=== PATIENT | female | born 1985 | race Caucasian/White ===

== ENCOUNTER 2016-09-17 20:51 | Emergency (ER) | payer MEDICAID, OTHER ==
[~2016-09-17] VITALS: Ht 157.5 cm; Wt 119.0 kg
[~2016-09-17 20:51] MED LIST: ACET500T98 PO; HYDR-902 PO; IBUP-1542 PO; IBUP400T22 PO; MECL-77 PO; MECL25TA2 PO; NAPR-260 PO; ONDA4TAB14 PO; OSLT75C PO; UDROBDM PO
[2016-09-17 20:54] VITALS: Ht 157.5 cm; Wt 119.0 kg
--- NOTE | 2016-09-17 22:25 | ERD ---
ER Documentation Chief Complaint Date/Time DATE: 09/17/16 TIME: 22:23 Chief Complaint twisted left ankle while running yesterday HPI 31-year-old female comes in with left lateral medial ankle pain after twisting it yesterday. She states that she has not gotten her foot in a pothole causing an inversion injury, she has diffuse swelling, achy pain worse with weightbearing better at rest. She states the pain improved after taking ibuprofen which she took 2 hours prior to arrival. She denies any radiation of pain to her foot or her leg. She denies any weakness. ROS All systems reviewed and are negative except as per history of present illness. Medications Home Meds Active Scripts Ibuprofen* (Motrin*) 600 Mg Tab, 600 MG PO Q6, #30 TAB Prov:KIERA LUCAS PA-C 09/17/16 Ondansetron (Ondansetron Odt) 4 Mg Tab.rapdis, 4 MG PO Q6H Y for NAUSEA AND/OR VOMITING, #20 TAB Prov:CHAD ARSHAD PA-C 11/28/15 Hydrocodone/Acetaminophen (Slemp 10-325 Tablet) 1 Each Tablet, 1 TAB PO Q6H Y for PAIN, #20 TAB Prov:CHAD ARSHAD PA-C 11/28/15 Ibuprofen* (Motrin*) 600 Mg Tab, 600 MG PO Q6H Y for PAIN AND OR ELEVATED TEMP, #30 TAB Prov:CHAD ARSHAD PA-C 11/28/15 Meclizine Hcl* (Meclizine Hcl*) 25 Mg Tablet, 25 MG PO Q8H Y for DIZZINESS, #14 TAB Prov:JCARLOS BURROWS DO 11/09/15 Naproxen* (Naprosyn*) 500 Mg Tablet, 500 MG PO BID Y for PAIN AND/OR INFLAMMATION, #15 TAB Prov:JCARLOS BURROWS DO 11/09/15 Guaifenesin-Dextromethorphan* (Robitussin* DM) 100MG/10MG/5ML Syrup, 5 ML PO Q6H Y for COUGH, #120 ML 0 Refills Prov:EYAL SCHMID PA-C 05/14/15 Ibuprofen* (Motrin*) 400 Mg Tab, 400 MG PO Q6, #30 TAB 0 Refills Prov:EYAL SCHMID PA-C 05/14/15 Oseltamivir Phosphate* (Tamiflu*) 75 Mg Capsule, 75 MG PO BID, #10 CAP 0 Refills Prov:EYAL SCHMID PA-C 05/14/15 Acetaminophen (Tylenol) 500 Mg Tab, 500 MG PO Q6, #30 TAB 0 Refills Prov:EYAL SCHMID CORAZON 05/14/15 Meclizine Hcl* (Antivert*) 25 Mg Tablet, 25 MG PO Q6H Y for vertigo, #20 TAB Prov:STARR KRUGER 09/02/14 Allergies Allergies: Coded Allergies: No Known Allergy (Verified , 09/17/16) PMhx/Soc Medical and Surgical Hx: pt denies Surgical Hx History of Surgery: No Anesthesia Reaction: No Hx Neurological Disorder: No Hx Respiratory Disorders: No Hx Cardiac Disorders: No Hx Psychiatric Problems: No Hx Miscellaneous Medical Probl: Yes (OBESE ) Hx Alcohol Use: No Hx Substance Use: No Hx Tobacco Use: No Smoking Status: Never smoker Physical Exam Vitals Vital Signs Date Time Temp Pulse Resp B/P Pulse Ox O2 Delivery O2 Flow Rate FiO2 09/17/16 20:54 96.9 102 20 166/99 97 Physical Exam General: Well-developed, well-nourished. The patient appears in no acute distress. HEENT: Head is normocephalic, atraumatic. No scleral icterus. Neck: Supple. Nontender. Lungs: Clear to auscultation. Normal air movement. Heart: Regular rate and rhythm. S1 and S2 are normal. No murmurs, gallops, or rubs. Abdomen: Nondistended. Extremities: diffuse soft tissues swelling across the medial ankle as well as lateral ankle, there are no bony deformities. There is ecchymosis over the medial ankle. Pulses 2+ bilaterally. Achilles intact. Neurologic: Alert and oriented 3. No focal deficits. Normal speech and gait. Skin: Normal turgor. No rash or lesions. Results 24 hrs DIAGNOSTIC IMAGING REPORT Patient: DAVID PAIGE : 1985 Age: 31 Sex: F MR #: [id number] DOS: 09/17/16 2152 Ordering MD: KIERA LUCAS PA-C Location: [facility] Room/Bed: PROCEDURE: XR Left Ankle CLINICAL INDICATION: Injury TECHNIQUE: Standard 3 view radiographs were submitted. COMPARISON: None FINDINGS: Osseous structures: Well mineralized and intact with no fracture or destructive process identified. Joint spaces: Well maintained with no significant erosions or spurring evident. Soft tissues: The soft tissues are diffusely prominent. IMPRESSION: 1. Diffusely prominent soft tissues. 2. No fracture or dislocation is identified. Physician Po Date Time Electronically viewed and signed by Lalo Florentino Physician on 09/17/2016 22:23 RH/ CC: KIERA LUCAS PA-C Procedures/MDM ED course: I offered her pain medication at this time and she declined. Patient's left ankle was wrapped in Junior bandage. She was given crutches to be weightbearing as tolerated. Splint Assessment: Neurovascularly intact post splint placement with good fit. Medical decision making: This is a 31-year-old female comes to emergency room with a left ankle injury, comes in with an ankle sprain, no fracture, dislocation or Achilles tendon rupture. X-rays are unremarkable, she is neurovascularly intact and will be discharged home. Departure Diagnosis: Primary Impression: Ankle injury Condition: Good KIERA LUCAS PA-C Sep 17, 2016 22:25
[2016-09-17] MEDS ORDERED: IBUP-1542 PO (22:26)
== END 2016-09-17 22:41 | disposition home or self-care (01) ==
LOC: FTE 20:51
DX: S99.912A Unspecified injury of left ankle, initial encounter (principal); E66.9 Obesity, unspecified; X50.1XXA Overexertion from prolonged static or awkward postures, initial encounter; Y92.9 Unspecified place or not applicable; Z68.42 Body mass index [BMI] 45.0-49.9, adult
CPT/HCPCS: 73610

== ENCOUNTER 2017-09-04 11:47 | Emergency (ER) | END 2017-09-04 13:15 | disposition home or self-care (01) ==

== ENCOUNTER 2017-09-09 15:21 | Emergency (ER) | END 2017-09-09 16:13 | disposition home or self-care (01) ==